=== PATIENT | female | born 1965 | race Two or more races ===

== ENCOUNTER 2017-07-09 06:02 | Day surgery (SDC) | payer BC ==
[2017-07-05 15:20] VITALS: BMI 29.8
[~2017-07-09 06:02] MED LIST: MORPHINE SULFATE 10 MG/ML SYRINGE IV PRN; ONDANSETRON 4 MG/2 ML VIAL IVP PRN; cefOXitin IN SWFI 2 GM/10 ML SYRINGE IVP ONE
[2017-07-09] MEDS ORDERED: LIDOCAINE 1% 20 ML VIAL (10MG/ML) FOR IV START INTRADERMA ONE (06:27)
[2017-07-09] MEDS: LACTATED RINGERS 1,000 ML IV SCH ×2 (06:27→11:53)
[2017-07-09] MEDS ORDERED: DEXAMETHASONE SOD PHOSPHATE 10 MG/ML 1 ML VIAL IV ONE (06:50)
[2017-07-09] MEDS ORDERED: VASOPRESSIN 20 UNIT/ML 1 ML VIAL SQ ONE (08:08)
[2017-07-09] MEDS ORDERED: LACTATED RINGERS 1,000 ML IV ONE (08:10)
[2017-07-09] MEDS ORDERED: BACITRACIN 500 UNIT/GM OINT 28.4 GM TUBE TOPICAL ONE (08:23)
[2017-07-09] MEDS ORDERED: IBUPROFEN 600 MG TAB PO PRN (08:37)
[2017-07-09] MEDS ORDERED: METOCLOPRAMIDE 5 MG/ML 2 ML VIAL IVP PRN (08:37)
[2017-07-09] MEDS ORDERED: KETOROLAC 30 MG/ML 1 ML VIAL IVP PRN (08:37)
[2017-07-09] MEDS ORDERED: SIMETHICONE 80 MG CHEWABLE PO PRN (08:37)
[2017-07-09] MEDS ORDERED: ONDANSETRON 4 MG/2 ML VIAL IVP PRN (08:37)
--- NOTE | 2017-07-09 08:37 | P.OP ---
Date of Procedure: 07/09/17 Preoperative Diagnosis: symptomatic grade 3-4 rectocele Postoperative Diagnosis: same Procedure(s) Performed: rectocele repair Anesthesia: KIERRA Surgeon: Cecilia Wall Tannery Gummer #1: Jaqueline Rashid Estimated Blood Loss (ml): 50 IV fluids (ml): 1,000 Urine output (ml): 100 Pathology: none sent Condition: stable Disposition: PACU Description of Procedure: patient is brought to the operating suite where a general anesthetic is administered per the anesthesiology staff. She's placed in the dorsal lithotomy position. The perineal body is prepped and draped in the usual sterile fashion. the appropriate timeout was performed to assure proper patient and procedural identification.The bladder is drained for 100 mL of clear yellow urine. A large grade 4 rectocele is appreciated. A triangular portion of tissue is removed with a scalpel. The posterior vaginal vault is then injected in the midline with dilute Pitressin. At some from scissors are used in the midline to undermine the tissue. This is taken to the apex of the defect. Sponge rolled finger is used to sweep the underlying fascial plane from the overlying mucosal edges. The edges are held with Allis clamps and a fanlike fashion.2-0 Vicryl sutures used in an interrupted fashion to bring the fascial edges together in the midline thereby completely reducing the rectocele. Metzenbaum scissors are used to trim the redundant mucosa. 2-0 Vicryl sutures used in a running locking fashion to bring the mucosal edges together for excellent reapproximation. The repair is completed and an episiotomy-like fashion. The vaginal vault is packed with a 1 inch iodophor gauze. Levy catheter is noted to be draining clear urine. Rectal exam reveals smooth mucosa without any defects. All sponge needle and enhancement counts are correct at the end of the procedure. Patient is brought back to the recovery room in very good condition with stable vital signs including blood pressure 112/71, pulse 86, 98 % O2 saturation. Please note that antibiotics are given prophylactically prior to the case. Toradol is now given to aid in postoperative analgesia. Patient will be started on Lovenox 30 mg subcu this evening per recommendation of supervisor vine fruit farming oncologist.
[2017-07-09] MEDS: ENOXAPARIN 30 MG/0.3 ML SYRINGE SQ SCH (11:18)
[2017-07-09] MEDS: SENNOSIDES-DOCUSATE SODIUM 1 EACH TAB PO SCH ×2 (11:22→20:24)
[2017-07-09] MEDS: FAMOTIDINE 20 MG TAB PO SCH (11:56)
[2017-07-10] MEDS ORDERED: ACETAMINOPHEN TAB 325 MG TAB PO PRN (08:39)
[2017-07-10] MEDS: SENNOSIDES-DOCUSATE SODIUM 1 EACH TAB PO SCH (09:17)
[2017-07-10] MEDS: ENOXAPARIN 30 MG/0.3 ML SYRINGE SQ SCH (09:18)
[2017-07-10] MEDS: FAMOTIDINE 20 MG TAB PO SCH (09:18)
[2017-07-10 09:44] VITALS: BP 119/69; PULSE 85; RESP 20; TEMP 97.9
--- NOTE | 2017-07-10 10:37 | P.DS ---
Providers Date of admission: 07/09/17 Expected date of discharge: 07/10/17 Attending physician: Cecilia Wall Primary care physician: Stated None Hospital Course: This is a 52-year-old female, status post hysterectomy in the past, who presented with an increasingly symptomatic grade 3-4 rectocele. After consultation, patient elected to proceed with surgical repair. Preoperative consultation with her conveyor man oncologist was performed, and recommendation was made for Lovenox 30 mg subcu every evening starting on the first day of postoperative care, and for 2 weeks. Please see my admitting history and physical for details. Patient underwent rectocele repair without issue. Vagina was packed with iodoform gauze. She did well intraoperatively under general anesthetic, please see my dictated operative note for details. Today the patient is doing very well. She is voiding, ambulating, passing flatus without difficulty. Vital signs are stable and she is afebrile. There is no CVA tenderness. There is no vaginal drainage on the sagrario-pad. Lovenox was given last night, and patient's has been educated via proper use. The extremities are negative for edema. Active bowel sounds are noted. Patient is therefore being discharged home today. She is in excellent condition for discharge. I have reminded her no intercourse, tampons or douching. She will use [id number]-dklscuw ibuprofen products, 200 mg pills, 3 every 6 hours as needed. I've asked her to call me with any fevers shakes or chills, foul smelling or bloody vaginal drainage, with any pain not alleviated by [id number]-sacbasl products, or indeed with any concerns. I have written a prescription for Lovenox 30 mg to be used subcu every evening and the patient's has once again been instructed as to proper use. She will restart all of her home medications. Patient Condition at Discharge: Good Plan - Discharge Summary Discharge Rx Participant: Yes New Discharge Prescriptions: No Action Famotidine [Pepcid] 20 mg PO DAILY Fexofenadine HCl [Adrienne Allergy] 60 mg PO BID PRN PRN Reason: Allergy Symptoms Ferrous Sulfate [Feosol] 325 mg PO DAILY Vitamin B Complex 1 each PO DAILY Turmeric Root Extract [Turmeric] 475 mg PO DAILY Folic Acid 0.8 mg PO DAILY Cyanocobalamin (Vitamin B-12) [Vitamin B-12] 1,000 mcg PO DAILY Collagen( Unknown Med) 600 mg PO DAILY Cholecalciferol (Vitamin D3) [Vitamin D3] 5,000 unit PO DAILY Discharge Medication List Cholecalciferol (Vitamin D3) [Vitamin D3] 5,000 unit PO DAILY 07/05/17 [History] Collagen( Unknown Med) 600 mg PO DAILY 07/05/17 [History] Cyanocobalamin (Vitamin B-12) [Vitamin B-12] 1,000 mcg PO DAILY 07/05/17 [ History] Famotidine [Pepcid] 20 mg PO DAILY 07/05/17 [History] Ferrous Sulfate [Feosol] 325 mg PO DAILY 07/05/17 [History] Fexofenadine HCl [Adrienne Allergy] 60 mg PO BID PRN 07/05/17 [History] Folic Acid 0.8 mg PO DAILY 07/05/17 [History] Turmeric Root Extract [Turmeric] 475 mg PO DAILY 07/05/17 [History] Vitamin B Complex 1 each PO DAILY 07/05/17 [History] Follow up Appointment(s)/Referral(s): Cecilia Wall MD [STAFF PHYSICIAN] - 2 Weeks Discharge Disposition: HOME SELF-CARE
== END 2017-07-10 12:10 | disposition home or self-care (01) ==
LOC: OR 06:02 → 6PED 08:40 → OR 07-10 12:10
PROVIDERS: ATTEND Obstetrics & Gynecology
DX: N81.6 Rectocele (principal); K21.9 Gastro-esophageal reflux disease without esophagitis; Z79.899 Other long term (current) drug therapy
CPT/HCPCS: 86900; 86901; 86850; 36415; 57250; J1100; J2405; J0694; J1650 ×2

== ENCOUNTER 2024-04-24 06:48 | Day surgery (SDC) | payer BC ==
[2024-04-21 15:23] VITALS: BMI 29.0
[~2024-04-24 06:48] MED LIST changes: +LACTATED RINGERS 1,000 ML IV SCH; -MORPHINE SULFATE 10 MG/ML SYRINGE IV PRN; -ONDANSETRON 4 MG/2 ML VIAL IVP PRN; -cefOXitin IN SWFI 2 GM/10 ML SYRINGE IVP ONE
[2024-04-24] MEDS: IV FLUID CONTINUATION 1,000 ML IV ONE (07:16)
[2024-04-24 07:25] VITALS: TEMP 97.2
[2024-04-24] MEDS: FAMOTIDINE 20 MG/2 ML VIAL IV STA (07:38)
[2024-04-24] MEDS ORDERED: PROPOFOL 10 MG/ML 20 ML VIAL IV ONE (07:53)
[2024-04-24] MEDS ORDERED: LIDOCAINE 1% INJ 10MG/ML (20 ML MDV) ONE (07:53)
--- NOTE | 2024-04-24 08:17 | P.PCN ---
Date of Procedure: 04/24/24 Procedure(s) Performed: Brief history: Patient is a pleasant 58-year-old pleasant scheduled for an elective upper endoscopy as well as colonoscopy as a part of evaluation of GERD and screening for colon cancer. Her mother was diagnosed with colon cancer at age 65. Procedure performed: Esophagogastroduodenoscopy biopsy Colonoscopy Preoperative diagnosis: GERD Screening for colon cancer and family history of colon cancer Anesthesia: MAC Procedure: After informed consent was obtained from the patient was brought into the endoscopy unit and IV sedation was administered by anesthesia under continuous monitoring. Initially upper endoscopy was done. The Olympus GF 160 video endoscope was inserted inserted into the mouth and esophagus intubated without any difficulty and was gradually advanced into the stomach and duodenum and carefully examined. The bulb and second part of the duodenum with evidence of some previous surgery for malrotation. There was a diverticulum noted along the duodenal bulb. The scope was then withdrawn into the stomach adequately insufflated with air and upon careful examination the antrum gastritis and biopsies were done from this area. Mucosa body, cardia and fundus appeared normal. The scope was then withdrawn into the esophagus. The GE junction was located at 40 cm to the incisors. There noted. The GE junction appeared irregular with circumferential erythema and 2 superficial erosions consistent with LA grade B reflux esophagitis. Rest of the esophagus appeared normal. Patient tolerated the procedure well. At this time the patient continued to remain sedation. Initial digital rectal examination was normal. Olympus CF 160 video colonoscope was then inserted into the rectum and gradually advanced to the descending colon and further advancement was not possible. The scope was removed and a pediatric colonoscopy was then introduced into the rectum and gradually advanced into the cecum without any difficulty. Careful examination was performed as the scope was gradually being withdrawn. The prep was excellent. The cecum, ascending colon, transverse colon, descending colon, sigmoid colon and rectum appeared normal. Retroflexion was performed in the rectum and no lesions were noted. Patient tolerated the procedure well. Impression: 1. Upper endoscopy revealed small hiatal hernia, LA grade B reflux esophagitis and mild antral gastritis 2. Colonoscopy as of colorectal neoplasia Recommendations: Findings of this examination were discussed with the patient as well as her family. She was advised to follow-up with the biopsy results. Advised to continue Nexium 20 mg daily on a regular basis and follow antireflux measures. Recommended repeat screening colonoscopy in 5 years because of a family history of colon cancer.
[2024-04-24 08:24] VITALS: RESP 16
[2024-04-24 08:37] VITALS: BP 126/81; PULSE 77
== END 2024-04-24 09:08 | disposition home or self-care (01) ==
LOC: ORWHC2ENDO 06:48
PROVIDERS: ATTEND Internal Medicine Gastroenterology
DX: Z12.11 Encounter for screening for malignant neoplasm of colon (principal); K21.00 Gastro-esophageal reflux disease with esophagitis, without bleeding; K44.9 Diaphragmatic hernia without obstruction or gangrene; Z80.0 Family history of malignant neoplasm of digestive organs; Z88.5 Allergy status to narcotic agent; Z79.899 Other long term (current) drug therapy
CPT/HCPCS: 43239; 45378; 88305